=== PATIENT | female | born 1975 | race Caucasian/White ===

== ENCOUNTER 2022-06-07 14:50 | Outpatient (CLI) | payer OTHER, SELFPAY ==
--- NOTE | 2022-06-07 15:18 | MR_ITS ---
WS: [id number] MRI LEFT SHOULDER NONCONTRAST TECHNIQUE: Sagittal T2, coronal T1, T2 and proton density imaging. Axial gradient PDE imaging. CLINICAL INFORMATION: LEFT SHOULDER INJURY COMPARISON: None. FINDINGS: Mild degenerative arthritis at the AC joint. Trace subacromial fluid. Small amount of fluid at the AC joint. Subacromial space is preserved. Distal supraspinatus is intact. Normal infraspinatus. Normal teres minor. Subscapularis appears intact. Tiny biceps tendon within the bicipital groove. Tiny remna nt biceps tendon at the rotator interval. Intra-articular biceps tendon not well visualized and may b e chronically torn. Sublabral foramen. Labrum appears grossly intact. Normal bone marrow signal in the humerus and glenoi d. Normal visualized soft tissues. MR/MR shoulder LT wo con* [id number] IMPRESSION: 1. Mild degenerative arthritis at the AC joint with a small amount of edema an d fluid. Subacromial space is preserved. 2. Rotator cuff is intact. 3. Tiny diminutive biceps tendon within the bicipital groove. Intra-articular biceps tendon is not well visualized. Tiny biceps tendon remnant visualized in the rotator interval. 4. Normal bone marrow signal in the humerus and glenoid. 5. No other acute findings.
== END 2022-06-07 14:51 | disposition home or self-care (01) ==
LOC: RAD 14:51
PROVIDERS: PCP Family Medicine; Visit Provider Family Medicine
DX: S49.92XA Unspecified injury of left shoulder and upper arm, initial encounter (principal); X58.XXXA Exposure to other specified factors, initial encounter; M19.012 Primary osteoarthritis, left shoulder
CPT/HCPCS: 73221

== ENCOUNTER → 2022-07-28 09:40 | Outpatient (BNVA) | payer OTHER, SELFPAY | PROVIDERS: PCP Family Medicine; Referring Provider Family Medicine; Visit Provider Student in an Organized Health Care Education/Training Program | DX: M75.42 Impingement syndrome of left shoulder (principal) | CPT/HCPCS: 73030 ==

== ENCOUNTER 2022-08-12 09:18 | Outpatient (RCR) | payer BC, SELFPAY | END 2022-08-30 23:59 | disposition home or self-care (01) | LOC: SPT 09:18 | PROVIDERS: PCP Family Medicine; Visit Provider Student in an Organized Health Care Education/Training Program | DX: M75.42 Impingement syndrome of left shoulder (principal) | CPT/HCPCS: 97110; 97161 ==

== ENCOUNTER 2022-08-31 06:00 | Outpatient (RCR) | payer BC, SELFPAY | END 2022-09-27 23:59 | disposition home or self-care (01) | LOC: SPT 06:00 | PROVIDERS: PCP Family Medicine; Visit Provider Student in an Organized Health Care Education/Training Program | DX: M25.512 Pain in left shoulder (principal) | CPT/HCPCS: 97110 ==

== ENCOUNTER → 2022-11-02 09:45 | Outpatient (BNVA) | payer BC, SELFPAY | PROVIDERS: PCP Family Medicine; Referring Provider Family Medicine; Visit Provider Internal Medicine | DX: E04.1 Nontoxic single thyroid nodule (principal); L68.0 Hirsutism; E55.9 Vitamin D deficiency, unspecified; L70.9 Acne, unspecified; R60.9 Edema, unspecified; E03.9 Hypothyroidism, unspecified; R53.83 Other fatigue | CPT/HCPCS: 36415; 80053; 80061; 82088; 82306; 82310; 82533; 82627; 83036; 83516; 83970; 84244; 84403; 84439; 84443; 85025; 86376 ==

== ENCOUNTER 2022-12-28 07:41 | Outpatient (CLI) | payer BC, SELFPAY ==
--- NOTE | 2022-12-28 07:44 | NM_ITS ---
WS: [id number] EXAMINATION: NM parathyroid [id number] ORDER DATE: 12/28/2022 7:44 AM COMPARISON: Ultrasound thyroid May 12, 2022 HISTORY: Hyperparathyroidism TECHNIQUE: Parathyroid scintigraphy with 19.6 mCi of technetium 99m sestamibi administered. AP and o blique views obtained with and without chin and suprasternal notch markers. Initial and 2 hour delayed imagi ng acquired. FINDINGS: Normal salivary gland uptake. Intense radiotracer uptake in the large LEFT thyroid nodule correspondi ng to the nodule seen on the prior ultrasound mostly washes out on the delayed imaging. This measures up to 6.0 cm No retained areas of radiotracer activity to indicate parathyroid adenoma. NM/NM parathyroid [id number] IMPRESSION: No evidence of parathyroid adenoma.
== END 2022-12-28 07:42 | disposition home or self-care (01) ==
LOC: RAD 07:42
PROVIDERS: PCP Family Medicine; Visit Provider Internal Medicine
DX: E03.9 Hypothyroidism, unspecified (principal); E21.3 Hyperparathyroidism, unspecified
CPT/HCPCS: 78070; A9500

== ENCOUNTER 2023-01-18 08:24 | Outpatient (CLI) | payer BC, SELFPAY ==
[2023-01-18 09:33] LABS: NT Pro B Type Natriuretic Pept 54 pg/mL (0-125); Vitamin B12 375 pg/mL (232-1245)
[2023-01-18 09:34] LABS: Calcium 8.7 mg/dL (8.5-10.5)
[2023-01-18 09:42] LABS: Parathyroid Hormone 65.9 pg/mL (15-65)
[2023-01-18 10:11] LABS: Free T4 Free Thyroxine 1.19 ng/dL (0.82-1.77)
[2023-01-20 01:09] LABS: T3 Total 116 ng/dL (76-181)
== END 2023-01-18 08:25 | disposition home or self-care (01) ==
LOC: LAB 08:27
PROVIDERS: PCP Family Medicine; Visit Provider Internal Medicine
DX: E03.9 Hypothyroidism, unspecified (principal); E55.9 Vitamin D deficiency, unspecified; L68.0 Hirsutism; L70.9 Acne, unspecified; E04.1 Nontoxic single thyroid nodule; R53.83 Other fatigue; R60.9 Edema, unspecified
CPT/HCPCS: 36415; 82310; 82607; 83880; 83970; 84439; 84443; 84480

== ENCOUNTER 2023-01-20 08:34 | Oncology outpatient (recurring) (ONCR) | payer BC, SELFPAY | END 2023-01-27 23:59 | disposition home or self-care (01) | PROVIDERS: PCP Family Medicine; Visit Provider Internal Medicine Medical Oncology | DX: Z53.9 Procedure and treatment not carried out, unspecified reason (principal) ==

== ENCOUNTER 2023-01-23 14:23 | Outpatient (CLI) | payer BC, SELFPAY ==
[2023-01-23 16:18] LABS: Urine Creatinine 148 mg/dL (28-217)
[2023-01-23 16:45] LABS: Total Volume Urine 1100 ml
[2023-01-23 16:48] LABS: Calcium 24 Hour Urine 164 mg/24hr (100-300); Total Volume Urine 1100 ml; Urine Calcium Result 14.9 mg/dL
== END 2023-01-23 14:24 | disposition home or self-care (01) ==
LOC: LAB 14:26
PROVIDERS: PCP Family Medicine; Visit Provider Internal Medicine
DX: E03.9 Hypothyroidism, unspecified (principal); E55.9 Vitamin D deficiency, unspecified; L68.0 Hirsutism; L70.9 Acne, unspecified
CPT/HCPCS: 82340; 82570

== ENCOUNTER 2023-07-28 08:12 | Outpatient (CLI) | payer BC, SELFPAY ==
[2023-07-28 09:00] LABS: Free T4 Free Thyroxine 1.16 ng/dL (0.82-1.77); Thyroid Stimulating Hormone 2.04 uIU/mL (0.27-4.20)
== END 2023-07-28 08:13 | disposition home or self-care (01) ==
LOC: LAB 08:15
PROVIDERS: PCP Family Medicine; Visit Provider Internal Medicine
DX: E03.9 Hypothyroidism, unspecified (principal)
CPT/HCPCS: 36415; 84439; 84443

== ENCOUNTER → 2023-10-18 12:18 | Outpatient (BNVA) | payer BC, SELFPAY | PROVIDERS: PCP Family Medicine; Visit Provider Internal Medicine | DX: L68.0 Hirsutism (principal); E55.9 Vitamin D deficiency, unspecified; E03.9 Hypothyroidism, unspecified; R53.83 Other fatigue; N25.81 Secondary hyperparathyroidism of renal origin; E04.1 Nontoxic single thyroid nodule; R60.9 Edema, unspecified | CPT/HCPCS: 36415; 82306; 82310; 83970; 84439; 84443; 84480 ==

== ENCOUNTER 2023-12-27 16:22 | Outpatient (CLI) | payer BC, SELFPAY ==
[2023-12-27 18:01] LABS: Parathyroid Hormone 46.6 pg/mL (15-65)
[2023-12-27 18:03] LABS: Calcium 9.4 mg/dL (8.5-10.5)
[2023-12-27 23:13] LABS: Free T4 Free Thyroxine 1.01 ng/dL (0.82-1.77); Thyroid Stimulating Hormone 2.59 uIU/mL (0.27-4.20)
[2023-12-28 01:48] LABS: 25 Hydroxy Vitamin D 24 ng/mL (30-100)
[2023-12-29 11:28] LABS: T3 Total 97 ng/dL (76-181)
== END 2023-12-27 16:23 | disposition home or self-care (01) ==
LOC: LAB 16:24
PROVIDERS: PCP Family Medicine; Visit Provider Internal Medicine
DX: L68.0 Hirsutism (principal); E55.9 Vitamin D deficiency, unspecified; E03.9 Hypothyroidism, unspecified; E04.1 Nontoxic single thyroid nodule
CPT/HCPCS: 36415; 82306; 82310; 83970; 84439; 84443; 84480

== ENCOUNTER 2024-02-27 10:13 | Outpatient (CLI) | payer BC, SELFPAY ==
[2024-02-27 10:54] LABS: Basophils % 0.4 %; Eosinophils # 0.3 10^3/uL (0.0-0.8); Eosinophils % 3.8 %; Hematocrit 46.8 % (36-47); Lymphocytes # 2.8 10^3/uL (0.8-4.8); Lymphocytes % 32.5 %; Mean Corpuscular HGB Conc 31.4 g/dL (30-55); Mean Corpuscular Hemoglobin 27.9 pg (27-33); Mean Corpuscular Volume 88.8 fl (85-98); Mean Platelet Volume 11.6 fL (7.4-10.4); Monocytes # 0.6 10^3/uL (0.2-0.9); Monocytes % 7.3 %; Neutrophils # 4.74 10^3/uL (1.8-7.7); Neutrophils % 55.6 %; Nucleated Red Blood Cells % 0 %; Platelet Count 237 10^3/cmm (157-399); Red Blood Count 5.27 10^6/uL (3.85-5.65); Red Cell Distribution Width 15.2 % (12.1-15.1); White Blood Count 8.51 10^3/uL (3.29-11.43)
[2024-02-27 11:12] LABS: Blood Urea Nitrogen 17 mg/dL (6-20); Calcium 9.2 mg/dL (8.5-10.5); Carbon Dioxide 27 mmol/L (22-29); Chloride 105 mmol/L (98-107); Glomerular Filtration Rate 52.8 mL/min (90-130); Glucose 105 mg/dL (65-115); Phosphorus 2.7 mg/dL (2.5-4.5); Sodium 142 mmol/L (136-145)
[2024-02-27 11:17] LABS: Urine Creatinine 284 mg/dL (28-217); Urine Protein Random 11 mg/dL
[2024-02-27 11:19] LABS: UPRO/UCREAT Ratio 0.04 mg/mg CR
== END 2024-02-27 10:14 | disposition home or self-care (01) ==
LOC: LAB 10:15
PROVIDERS: PCP Family Medicine; Visit Provider Registered Nurse
DX: N18.2 Chronic kidney disease, stage 2 (mild) (principal)
CPT/HCPCS: 36415; 80069; 82570; 84156; 85025

== ENCOUNTER 2024-06-24 16:31 | Outpatient (CLI) | payer BC, SELFPAY ==
[2024-06-24 17:28] LABS: Calcium 9.7 mg/dL (8.5-10.5)
[2024-06-24 17:35] LABS: Parathyroid Hormone 68.4 pg/mL (15-65)
[2024-06-24 17:37] LABS: 25 Hydroxy Vitamin D 34 ng/mL (30-100); Thyroid Stimulating Hormone 3.48 uIU/mL (0.27-4.20)
[2024-06-24 19:02] LABS: Free T4 Free Thyroxine 1.01 ng/dL (0.82-1.77)
== END 2024-06-24 16:32 | disposition home or self-care (01) ==
LOC: LAB 16:33
PROVIDERS: PCP Family Medicine; Visit Provider Internal Medicine
DX: E55.9 Vitamin D deficiency, unspecified (principal); E03.9 Hypothyroidism, unspecified
CPT/HCPCS: 36415; 82306; 82310; 83970; 84439; 84443

== ENCOUNTER 2024-12-26 15:44 | Outpatient (CLI) | payer BC, SELFPAY ==
[2024-12-26 22:46] LABS: Thyroid Stimulating Hormone 2.55 uIU/mL (0.27-4.20)
== END 2024-12-26 15:45 | disposition home or self-care (01) ==
PROVIDERS: PCP Family Medicine; Visit Provider Internal Medicine
DX: E03.9 Hypothyroidism, unspecified (principal); N25.81 Secondary hyperparathyroidism of renal origin; E04.1 Nontoxic single thyroid nodule
CPT/HCPCS: 36415; 84439; 84443

== ENCOUNTER 2025-01-10 16:56 | Outpatient (CLI) | payer BC, SELFPAY ==
--- NOTE | 2025-01-10 17:01 | US_ITS ---
WS: [id number] THYROID ULTRASOUND HISTORY: NODULE, history of RIGHT thyroidectomy. COMPARISON: 06/01/2023 Right lobe: 0.9 cm x 1.6 cm x 1.4 cm (w x ap x l). Volume: 1.0 cm3. Residual mass in the RIGHT thyroid bed with mild increased vascularity. Mass measures 0.9 x 1.6 x 1.4 cm and is not significantly changed in size since the prior study. Echogenic foci are noted through this mass. Left lobe: 3.4 cm x 3.6 cm x 6.2 cm (w x ap x l). Volume: 35.8 cm3. Markedly enlarged heterogeneous thyroid. Large dominant isoechoic and hypervascular nodule centered in the mid gland. No echogenic foci. Nodule measures 3.6 x 3.1 x 4.5 cm. Similar in appearance to prior exams. Isthmus: 0.7 cm. US/US thyroid [id number] IMPRESSION: 1. Status post RIGHT thyroidectomy. 2. Reidentified is the mass with echogenic foci in the RIGHT thyroid bed measu ring 0.9 x 1.6 x 1.4 cm. No history of thyroid cancer. This mass has been prese nt and stable since 05/12/2022. If there is a history of thyroid cancer this wo uld be concerning for recurrence. 3. TI-RADS 3; LEFT thyroid nodule. Very hypervascular nodule. This nodule has been stable for several years. Ultrasound-guided FNA could be attempted althoug h there is significant increased vascularity within this nodule. Mostly benign features except for the size.
== END 2025-01-10 16:57 | disposition home or self-care (01) ==
PROVIDERS: PCP Family Medicine; Visit Provider Internal Medicine
DX: R60.9 Edema, unspecified (principal); E04.1 Nontoxic single thyroid nodule; N25.81 Secondary hyperparathyroidism of renal origin; R53.83 Other fatigue; E03.9 Hypothyroidism, unspecified; E55.9 Vitamin D deficiency, unspecified; L68.0 Hirsutism
CPT/HCPCS: 76536

== ENCOUNTER 2025-03-04 15:45 | Outpatient (CLI) | payer BC, SELFPAY ==
[2025-03-04 17:17] LABS: Hematocrit 47.8 % (36-47); Hemoglobin 15.50 g/dL (11.27-16.99); Mean Corpuscular HGB Conc 32.4 g/dL (30-55); Mean Corpuscular Hemoglobin 28.9 pg (27-33); Mean Corpuscular Volume 89.2 fl (85-98); Nucleated Red Blood Cells % 0 %; Platelet Count 249 10^3/cmm (157-399); Red Blood Count 5.36 10^6/uL (3.85-5.65); White Blood Count 10.71 10^3/uL (3.29-11.43)
[2025-03-04 18:15] LABS: Albumin Level 4.3 g/dL (3.5-5.2); Anion Gap 18.0 (5-19); Blood Urea Nitrogen 14 mg/dL (6-20); Calcium 9.6 mg/dL (8.5-10.5); Carbon Dioxide 28 mmol/L (22-29); Chloride 103 mmol/L (98-107); Glucose 113 mg/dL (65-115); Potassium 4.0 mmol/L (3.5-5.1); Sodium 145 mmol/L (136-145)
[2025-03-04 18:16] LABS: Creatinine Urine, Random 231 mg/dL (28-217); Microalbum Creatinine Ratio Ur 9 mg/dL (0-20)
== END 2025-03-04 15:46 | disposition home or self-care (01) ==
PROVIDERS: PCP Family Medicine; Visit Provider Family Medicine
DX: N18.2 Chronic kidney disease, stage 2 (mild) (principal)
CPT/HCPCS: 36415; 80069; 82044; 85025